=== PATIENT | male | born 1960 | race Caucasian/White ===

== ENCOUNTER 2024-06-30 12:47 | Emergency (ER) | payer MEDICAID, MEDICARE, OTHER, SELFPAY ==
[~2024-06-30] VITALS: Ht 170.2 cm; Wt 160.7 kg
[2024-06-30] MEDS ORDERED: [UNRECOGNIZED DRUG - OTHER] PO (13:35)
[2024-06-30] MEDS ORDERED: OXYC30TA PO (15:55)
[2024-06-30 16:17] VITALS: BP 175/88; TEMP 96.8; O2SAT 99
== END 2024-06-30 16:16 | disposition home or self-care (01) ==
LOC: M ED 12:47
DX: G89.29 Other chronic pain (principal); M25.561 Pain in right knee; M25.562 Pain in left knee; F32.A Depression, unspecified; Z79.899 Other long term (current) drug therapy

== ENCOUNTER 2024-07-05 13:26 | Emergency (ER) | payer OTHER, SELFPAY ==
[~2024-07-05] VITALS: Ht 170.2 cm; Wt 160.7 kg
[~2024-07-05 13:26] MED LIST: OXYC30TA PO; [UNRECOGNIZED DRUG - OTHER] PO
[2024-07-05] MEDS: oxyCODONE 5MG TAB PO ONE (19:29)
[2024-07-05 20:16] VITALS: BP 183/82; TEMP 98.1; O2SAT 99
[2024-07-05 20:17] LABS: BASO # 0.1 10^3/uL (0.0-0.2); BASO % 0.7 % (0.0-1.0); EOS # 0.2 10^3/uL (0.0-0.5); EOS % 2.1 % (0.0-3.0); HEMATOCRIT 46.5 % (42.0-52.0); HEMOGLOBIN 15.3 g/dl (13.5-17.5); LYMPH # 1.8 10^3/uL (1.5-5.0); LYMPH % 24.8 % (24.0-44.0); MEAN CORPUSCULAR HGB CONC 32.9 g/dl (32.0-36.5); MEAN CORPUSCULAR VOLUME 94.3 fl (80.0-96.0); MONO # 0.8 10^3/uL (0.0-0.8); MONO % 11.2 % (2.0-8.0); NEUTROPHILS # 4.4 10^3/uL (1.5-8.5); NEUTROPHILS % 60.6 % (36.0-66.0); PLATELET COUNT, AUTOMATED 242 10^3/uL (150-450); RED BLOOD COUNT 4.93 10^6/uL (4.30-6.10); WHITE BLOOD COUNT 7.2 10^3/uL (4.0-10.0)
[2024-07-05 21:47] LABS: CK-MB VALUE MASS < 1.0 NG/ML (<3.6); CPK CREATINE PHOSPHOKINASE 57 U/L (46-171); MB/CK RELATIVE INDEX 1.75 (< OR =4)
[2024-07-05 21:48] LABS: BLOOD UREA NITROGEN 10 MG/DL (9-23); CALCIUM LEVEL 8.5 MG/DL (8.3-10.6); CARBON DIOXIDE LEVEL 30 MMOL/L (20-31); CHLORIDE LEVEL 108 MMOL/L (98-107); CREATININE FOR GFR 0.69 MG/DL (0.70-1.30); GLOMERULAR FILTRATION RATE > 60.0 (>49); GLUCOSE, FASTING 90 MG/DL (74-106); POTASSIUM SERUM 4.1 MMOL/L (3.5-5.1); SODIUM LEVEL 145 MMOL/L (136-145)
[2024-07-05] MEDS ORDERED: OXYC30TA PO (22:36)
== END 2024-07-06 02:39 | disposition home or self-care (01) ==
LOC: M ED 13:26
DX: Z76.0 Encounter for issue of repeat prescription (principal); F11.10 Opioid abuse, uncomplicated; F41.9 Anxiety disorder, unspecified; F32.A Depression, unspecified; Z98.84 Bariatric surgery status; Z79.899 Other long term (current) drug therapy

== ENCOUNTER → 2024-07-11 | Outpatient (REF) | payer SELFPAY ==
[2024-07-11 17:06] LABS: BASO # 0.1 10^3/uL (0.0-0.2); BASO % 0.8 % (0.0-1.0); EOS # 0.2 10^3/uL (0.0-0.5); EOS % 2.3 % (0.0-3.0); HEMATOCRIT 50.9 % (42.0-52.0); LYMPH # 2.2 10^3/uL (1.5-5.0); LYMPH % 25.3 % (24.0-44.0); MEAN CORPUSCULAR HEMOGLOBIN 30.2 pg (27.0-33.0); MEAN CORPUSCULAR HGB CONC 31.4 g/dl (32.0-36.5); MEAN CORPUSCULAR VOLUME 96.2 fl (80.0-96.0); MONO % 11.3 % (2.0-8.0); NEUTROPHILS % 58.9 % (36.0-66.0); PLATELET COUNT, AUTOMATED 260 10^3/uL (150-450); RED BLOOD COUNT 5.29 10^6/uL (4.30-6.10); WHITE BLOOD COUNT 8.6 10^3/uL (4.0-10.0)
[2024-07-11 17:27] LABS: ALBUMIN 3.4 G/DL (3.2-5.2); ALKALINE PHOSPHATASE 192 U/L (40-129); ALT/SGPT 31 U/L (7.0-40); AST/SGOT 27 U/L (<34); BILIRUBIN,TOTAL 0.5 MG/DL (0.3-1.2); BLOOD UREA NITROGEN 11 MG/DL (9-23); CALCIUM LEVEL 9.4 MG/DL (8.3-10.6); CARBON DIOXIDE LEVEL 28 MMOL/L (20-31); CHLORIDE LEVEL 106 MMOL/L (98-107); CHOLESTEROL LEVEL 262 MG/DL (<200); CHOLESTEROL RISK RATIO 3.77 (<5); CREATININE FOR GFR 0.75 MG/DL (0.70-1.30); GLOMERULAR FILTRATION RATE > 60.0 (>49); GLUCOSE, FASTING 85 MG/DL (74-106); HDL CHOLESTEROL 69.4 MG/DL (>40); NON-HDL-C 192.6 MG/DL; POTASSIUM SERUM 4.2 MMOL/L (3.5-5.1); SODIUM LEVEL 146 MMOL/L (136-145); TOTAL PROTEIN 7.2 G/DL (5.7-8.2); TRIGLYCERIDES LEVEL 123 MG/DL (<150)
[2024-07-11 17:28] LABS: HEMOGLOBIN A1c 4.8 % (4.0-6.0); THYROID STIMULATING HORMONE 3.651 uIU/ML (0.55-4.78)
== END ==
LOC: M LAB REF 12:18
PROVIDERS: ATTEND Nurse Practitioner Family
DX: E66.3 Overweight (principal); R53.83 Other fatigue; Z11.9 Encounter for screening for infectious and parasitic diseases, unspecified

== ENCOUNTER 2024-08-08 16:42 | Inpatient (IN) | payer MEDICARE, SELFPAY ==
[~2024-08-08] VITALS: Ht 170.2 cm; Wt 156.0 kg
[2024-08-08 17:15] LABS: HEMATOCRIT 48.5 % (42.0-52.0); HEMOGLOBIN 16.1 g/dl (13.5-17.5); MEAN CORPUSCULAR HGB CONC 33.2 g/dl (32.0-36.5); MEAN CORPUSCULAR VOLUME 93.4 fl (80.0-96.0); PLATELET COUNT, AUTOMATED 207 10^3/uL (150-450); RED BLOOD COUNT 5.19 10^6/uL (4.30-6.10); WHITE BLOOD COUNT 9.1 10^3/uL (4.0-10.0)
[2024-08-08] MEDS: LORazepam 2 MG/ML 1ML VIAL IM ONE (17:16)
[2024-08-08] MEDS: HALOPERIDOL LACTATE 5MG/ML VIAL IM ONE (17:16)
[2024-08-08] MEDS ORDERED: OMEP-173 PO (17:37)
[2024-08-08] MEDS ORDERED: OXYC20TA2 PO (17:37)
[2024-08-08] MEDS ORDERED: CELE0.09 PO (17:37)
[2024-08-08] MEDS ORDERED: DULO1CAP6 PO (17:37)
[2024-08-08] MEDS ORDERED: HOME MED LIST COMPLETE! XX SCH (17:40)
[2024-08-08 17:48] LABS: ETHYL ALCOHOL (ETHANOL) < 0.003 % (0.000-0.010)
[2024-08-08 17:50] LABS: ALBUMIN 3.8 G/DL (3.2-5.2); ALKALINE PHOSPHATASE 170 U/L (40-129); ALT/SGPT 22 U/L (7.0-40); AST/SGOT 29 U/L (<34); BILIRUBIN,DIRECT 0.2 MG/DL (<0.4); BILIRUBIN,TOTAL 0.8 MG/DL (0.3-1.2); BLOOD UREA NITROGEN 10 MG/DL (9-23); CALCIUM LEVEL 9.1 MG/DL (8.3-10.6); CARBON DIOXIDE LEVEL 24 MMOL/L (20-31); CHLORIDE LEVEL 106 MMOL/L (98-107); CREATININE FOR GFR 0.68 MG/DL (0.70-1.30); GLOMERULAR FILTRATION RATE > 60.0 (>49); GLUCOSE, FASTING 100 MG/DL (74-106); POTASSIUM SERUM 4.5 MMOL/L (3.5-5.1); SALICYLATE LEVEL < 3.0 MG/DL (<30); SODIUM LEVEL 144 MMOL/L (136-145)
[2024-08-08 17:52] LABS: THYROID STIMULATING HORMONE 1.112 uIU/ML (0.55-4.78)
[2024-08-08 20:02] LABS: AMPHETAMINES LEVEL URINE NEGATIVE (NEGATIVE); BARBITURATES URINE NEGATIVE (NEGATIVE); BENZODIAZEPINES URINE NEGATIVE (NEGATIVE); CANNABINOIDS URINE NEGATIVE (NEGATIVE); COCAINE METABOLITE URINE NEGATIVE (NEGATIVE); METHADONE URINE NEGATIVE (NEGATIVE); OPIATES URINE NEGATIVE (NEGATIVE)
[2024-08-08 20:18] LABS: PHENCYCLIDINE URINE NEGATIVE (NEGATIVE)
[2024-08-09] VITALS (7 sets, daily range): BP systolic 138–200; BP diastolic 82–90; TEMP 96.6–97.2; O2SAT 99–100
[2024-08-09] MEDS: OMEPRAZOLE 20MG CAP PO SCH (09:13)
[2024-08-09] MEDS: **hydrALAZINE** 10 MG TAB PO ONE (18:33)
[2024-08-09] MEDS ORDERED: diphenhydrAMINE 25MG CAP PO PRN (20:35)
[2024-08-09] MEDS ORDERED: MOM 30ML SUSPENSION UDC PO PRN (20:35)
[2024-08-09] MEDS ORDERED: MAALOX 30 ML SUSP *UDC PO PRN (20:35)
[2024-08-09] MEDS ORDERED: **hydrALAZINE** 10 MG TAB PO SCH (21:00)
[2024-08-09] MEDS: IBUPROFEN 400MG TAB PO PRN (21:28)
[2024-08-09] MEDS: ACETAMINOPHEN 325 MG TAB PO PRN (21:29)
[2024-08-09] MEDS: DULoxetine 30MG CAPSULE (CYMBALTA) PO SCH (21:29)
[2024-08-10 06:08] VITALS: BP 140/74; TEMP 96.9; O2SAT 94
[2024-08-10 15:01] VITALS: BP 164/96; TEMP 97.5; O2SAT 100
[2024-08-10] MEDS: **hydrALAZINE** 10 MG TAB PO PRN (15:22)
[2024-08-10] MEDS: traZODone 50 MG TAB PO PRN (20:34)
[2024-08-11 06:12] VITALS: BP 158/90; TEMP 98; O2SAT 97
[2024-08-11 09:15] VITALS: BP 123/69
[2024-08-11] MEDS: amLODIPine 5 MG TAB PO SCH (09:15)
[2024-08-11] MEDS ORDERED: HYDR-161 PO (12:57)
[2024-08-11] MEDS ORDERED: DIPH-435 PO (12:57)
[2024-08-11] MEDS ORDERED: CYMB1CAP5 PO (12:57)
[2024-08-11] MEDS ORDERED: AMLO1TAB24 PO (12:57)
[2024-08-11] MEDS ORDERED: TRAZ-252 PO (12:57)
== END 2024-08-11 13:13 | disposition home or self-care (01) | DRG 881 ==
LOC: M ED 16:42 → M ED INP 08-09 13:59 → M PSY 08-09 15:57
PROVIDERS: ADMIT Psychiatry & Neurology Psychiatry; ATTEND Psychiatry & Neurology Psychiatry
DX: F32.9 Major depressive disorder, single episode, unspecified (principal); R45.851 Suicidal ideations; Z68.43 Body mass index [BMI] 50.0-59.9, adult; E66.01 Morbid (severe) obesity due to excess calories; G47.33 Obstructive sleep apnea (adult) (pediatric); M17.0 Bilateral primary osteoarthritis of knee; I10 Essential (primary) hypertension; Z63.5 Disruption of family by separation and divorce; Z98.84 Bariatric surgery status; Z91.51 Personal history of suicidal behavior; Z90.49 Acquired absence of other specified parts of digestive tract; Z79.899 Other long term (current) drug therapy

== ENCOUNTER → 2024-10-20 | Outpatient (CLI) | payer MEDICARE ==
[~2024-10-20] MED LIST changes: +AMLO1TAB24 PO; +CELE0.09 PO; +CYMB1CAP5 PO; +DIPH-435 PO; +DULO1CAP6 PO; +HYDR-161 PO; +LASI20TA3 PO; +OMEP-173 PO; +OXYC20TA2 PO; +TRAZ-186 PO; +TRAZ-252 PO
[2024-10-20 16:38] LABS: CALCIUM LEVEL 8.9 MG/DL (8.3-10.6); CREATININE FOR GFR 0.96 MG/DL (0.70-1.30); GLOMERULAR FILTRATION RATE 89.4 (>49); POTASSIUM SERUM 3.8 MMOL/L (3.5-5.1)
== END ==
LOC: M RAD 15:20
PROVIDERS: ATTEND Nurse Practitioner Family
DX: R07.89 Other chest pain (principal); R74.8 Abnormal levels of other serum enzymes; Z12.5 Encounter for screening for malignant neoplasm of prostate; R60.0 Localized edema
CPT/HCPCS: 36415; 71046; 80048; 83880; 84075; 93005; G0103

== ENCOUNTER 2024-10-31 11:03 | Emergency (ER) | payer MEDICARE, MEDICAID ==
[~2024-10-31] VITALS: Ht 167.6 cm; Wt 164.3 kg
[~2024-10-31 11:03] MED LIST changes: -LASI20TA3 PO; -TRAZ-186 PO
[2024-10-31 11:55] LABS: BASO # 0.1 10^3/uL (0.0-0.2); BASO % 0.6 % (0.0-1.0); EOS # 0.1 10^3/uL (0.0-0.5); EOS % 1.7 % (0.0-3.0); LYMPH # 2.2 10^3/uL (1.5-5.0); LYMPH % 26.6 % (24.0-44.0); MONO # 0.8 10^3/uL (0.0-0.8); MONO % 9.4 % (2.0-8.0); NEUTROPHILS # 5.0 10^3/uL (1.5-8.5); NEUTROPHILS % 61.1 % (36.0-66.0); PLATELET COUNT, AUTOMATED 237 10^3/uL (150-450)
[2024-10-31 11:59] LABS: VENOUS BASE EXCESS -1.2 (-2.0-2.0); VENOUS HCO3 24.2 MMOL/L (23.0-27.0); VENOUS O2 SATURATION 68.1 % (60.0-80.0); VENOUS PARTIAL PRESSURE CO2 42.8 mmHg (38.0-50.0); VENOUS PARTIAL PRESSURE O2 35.9 mmHg (30.0-50.0); VENOUS PH 7.370 UNITS (7.330-7.430); VENOUS STANDARD HCO3 22.8 MMOL/L; VENOUS TOTAL CO2 25.5 MMOL/L (24.0-28.0)
[2024-10-31] MEDS: **hydrALAZINE** 10 MG TAB PO ONE (12:08)
[2024-10-31 12:25] LABS: ALT/SGPT 14 U/L (7.0-40); AST/SGOT 23 U/L (<34); CALCIUM LEVEL 9.0 MG/DL (8.3-10.6); CARBON DIOXIDE LEVEL 28 MMOL/L (20-31); CHLORIDE LEVEL 105 MMOL/L (98-107); CK-MB VALUE MASS 1.4 NG/ML (<3.6); CPK CREATINE PHOSPHOKINASE 78 U/L (46-171); CREATININE FOR GFR 0.78 MG/DL (0.70-1.30); GLOMERULAR FILTRATION RATE > 90.0 (>49); MB/CK RELATIVE INDEX 1.79 (< OR =4); POTASSIUM SERUM 4.2 MMOL/L (3.5-5.1); SODIUM LEVEL 144 MMOL/L (136-145)
[2024-10-31] MEDS ORDERED: ISOVUE-370 76% 100 ML VIAL As Ordered ONE (12:50)
[2024-10-31 13:23] LABS: CK-MB VALUE MASS 1.1 NG/ML (<3.6)
[2024-10-31 13:27] LABS: CPK CREATINE PHOSPHOKINASE 79.0 U/L (46-171); MB/CK RELATIVE INDEX 1.39 (< OR =4)
[2024-10-31] MEDS ORDERED: TRAZ-186 PO (14:09)
[2024-10-31] MEDS ORDERED: AMLO1TAB24 PO (14:09)
[2024-10-31] MEDS ORDERED: HYDR-161 PO (14:09)
[2024-10-31] MEDS ORDERED: HOME MED LIST COMPLETE! XX SCH (14:10)
[2024-10-31 15:31] VITALS: O2SAT 86
[2024-10-31] MEDS ORDERED: LASI20TA3 PO (15:44)
[2024-10-31 15:46] VITALS: BP 168/74; O2SAT 95
[2024-10-31 15:57] VITALS: TEMP 96.5
== END 2024-10-31 16:02 | disposition home or self-care (01) ==
LOC: M ED 11:03
DX: R60.0 Localized edema (principal); F32.A Depression, unspecified; Z91.51 Personal history of suicidal behavior; G47.33 Obstructive sleep apnea (adult) (pediatric); M19.90 Unspecified osteoarthritis, unspecified site; M54.9 Dorsalgia, unspecified; Z98.84 Bariatric surgery status; I51.7 Cardiomegaly; I25.10 Atherosclerotic heart disease of native coronary artery without angina pectoris
CPT/HCPCS: 71045; 71275; 80048; 80076; 82550; 82553; 82803; 83880; 84443; 84484; 85025; 87040; 87486; 87581; 87633; 87798; 93005; 93041; 93970; 94760; 99285; Q9967

== ENCOUNTER → 2024-11-21 | Outpatient (REF) | payer MEDICARE, MEDICAID ==
[~2024-11-21] MED LIST changes: +LASI20TA3 PO; +TRAZ-186 PO
[2024-11-21 18:00] LABS: C REACTIVE PROTEIN QUANTITATIV 0.68 MG/DL (<1.0)
[2024-11-21 18:05] LABS: HEPATITIS B SURFACE ANTIBODY NEGATIVE (POSITIVE)
[2024-11-21 20:25] LABS: PTH INTACT 127.5 PG/ML (18.5-88.0)
== END ==
LOC: M LAB REF 16:33
PROVIDERS: ATTEND Nurse Practitioner Family
DX: R74.8 Abnormal levels of other serum enzymes (principal); Z11.59 Encounter for screening for other viral diseases

== ENCOUNTER → 2024-12-06 | Outpatient (CLI) | payer MEDICARE, MEDICAID | LOC: M RAD 09:47 | PROVIDERS: ATTEND Student in an Organized Health Care Education/Training Program | DX: M17.0 Bilateral primary osteoarthritis of knee (principal) ==

== ENCOUNTER → 2025-02-28 | Outpatient (CLI) | payer MEDICARE, MEDICAID | LOC: M SLEEP 08:19 | PROVIDERS: ATTEND Nurse Practitioner Family | DX: R55 Syncope and collapse (principal) ==

== ENCOUNTER → 2025-03-02 | Outpatient (CLI) | payer MEDICARE, MEDICAID | LOC: M PLAIMG 13:22 | PROVIDERS: ATTEND Physician Assistant | DX: R94.31 Abnormal electrocardiogram [ECG] [EKG] (principal) ==

== ENCOUNTER → 2025-03-27 | Outpatient (CLI) | payer MEDICARE, MEDICAID | LOC: M WHC 09:44 | PROVIDERS: ATTEND Nurse Practitioner Family | DX: E21.3 Hyperparathyroidism, unspecified (principal) ==